=== PATIENT | female | born 1970 | race American Indian/Alaskan Native ===

== ENCOUNTER 2016-03-17 18:24 | Emergency (ER) | payer SELFPAY ==
[2016-03-17 18:36] VITALS: BP 125/80
== END 2016-03-17 20:11 | disposition left against medical advice (07) ==
LOC: ED 18:24
DX: J45.909 Unspecified asthma, uncomplicated (principal); R06.00 Dyspnea, unspecified; Z53.21 Procedure and treatment not carried out due to patient leaving prior to being seen by health care provider